=== PATIENT | female | born 1985 | race Caucasian/White ===

== ENCOUNTER 2019-01-19 22:05 | Emergency (ER) | payer BC ==
[~2019-01-19] VITALS: Ht 170.2 cm; Wt 70.5 kg
[2019-01-19 23:46] VITALS: BP 119/64
--- NOTE | 2019-01-20 07:42 | REP ---
Right shoulder three views : There is no fracture or dislocation. Mineralization and joint spaces are normal. There are no calcifications or foreign bodies. Impression: Negative right shoulder . Electronically Signed by Matt Goldstein MD 01/20/2019 07:34 A
== END 2019-01-19 23:47 | disposition home or self-care (01) ==
LOC: M ED 22:05
DX: S43.51XA Sprain of right acromioclavicular joint, initial encounter (principal); X58.XXXA Exposure to other specified factors, initial encounter; Y92.89 Other specified places as the place of occurrence of the external cause; Y93.16 Activity, rowing, canoeing, kayaking, rafting and tubing; Y99.9 Unspecified external cause status; E06.3 Autoimmune thyroiditis; Z91.030 Bee allergy status; Z91.013 Allergy to seafood; Z91.89 Other specified personal risk factors, not elsewhere classified